=== PATIENT | female | born 1965 | race Caucasian/White ===

== ENCOUNTER 2017-01-06 14:26 | Emergency (ER) | payer SELFPAY ==
[2017-01-06 15:11] VITALS: BP 133/93
== END 2017-01-06 16:10 | disposition left against medical advice (07) ==
LOC: ED 14:26
DX: Z53.21 Procedure and treatment not carried out due to patient leaving prior to being seen by health care provider (principal)

== ENCOUNTER 2017-01-06 18:38 | Emergency (ER) | payer SELFPAY ==
[2017-01-06 19:23] LABS: Basophils % (Auto) 0.2 % (0.0-1.8); Eosinophils % (Auto) 0.3 % (0.0-4.3); Hematocrit 42.7 % (30.3-42.9); Hemoglobin 13.8 gm/dl (10.1-14.3); Mean Corpuscular HGB Conc 32 % (30-34); Mean Corpuscular Hemoglobin 26 pg (28-32); Mean Corpuscular Volume 82 fl (79-97); Platelet Count 327 K/mm3 (140-440); Red Blood Count 5.22 M/mm3 (3.65-5.03); Red Cell Distribution Width 15.6 % (13.2-15.2); White Blood Count 13.2 K/mm3 (4.5-11.0)
[2017-01-06 19:41] LABS: Anion Gap 20 mmol/L; BUN/Creatinine Ratio 13; Blood Urea Nitrogen 9 mg/dL (7-17); Calcium 8.8 mg/dL (8.4-10.2); Carbon Dioxide 24 mmol/L (22-30); Chloride 101.9 mmol/L (98-107); Glucose 133 mg/dL (65-100); Potassium 4.6 mmol/L (3.6-5.0); Sodium 141 mmol/L (137-145)
--- NOTE | 2017-01-06 21:49 | Emergency Department Report ---
HPI - General Chief Complaint: Dental/Oral Time Seen by Provider: 01/06/17 21:23 - HPI HPI: Room 1 The patient is a 51-year-old female presenting with a chief complaint of bleeding from dental extraction site. The patient saw a dentist this morning at approximately 10:30 and had a dental extraction. Family states that extraction was only partially completed and the procedure stopped secondary to bleeding. The patient went home and continue to have bleeding. The patient contacted the dentist instructed the patient to apply direct pressure. Family and decided to come to the hospital when the bleeding did not stop. Location: [place] Duration: Constant since 20:30 Quality: Bleeding Severity: Moderate Modifying factors: [see above] Context: [see above] Mode of transportation: [not driving] ED Past Medical Hx - Past Medical History Hx Headaches / Migraines: Yes - Surgical History Additional Surgical History: tooth extraction - Family History Family history: no significant - Social History Smoking Status: Never Smoker Substance Use Type: None ED Review of Systems ROS: Stated complaint: BLEEDING FROM TOOTH EXTRACTION Other details as noted in HPI Comment: All other systems reviewed and negative Constitutional: denies: chills, fever Eyes: denies: eye pain, eye discharge, vision change ENT: dental pain, other (gingival bleeding) Respiratory: denies: cough, shortness of breath, wheezing Cardiovascular: denies: chest pain, palpitations Endocrine: no symptoms reported Gastrointestinal: denies: abdominal pain, nausea, diarrhea Genitourinary: denies: urgency, dysuria, discharge Musculoskeletal: denies: back pain, joint swelling, arthralgia Skin: denies: rash, lesions Neurological: denies: headache, weakness, paresthesias Psychiatric: denies: anxiety, depression Hematological/Lymphatic: denies: easy bleeding, easy bruising Physical Exam - Physical Exam Vital Signs: Vital Signs 01/06/17 18:57 Pulse Rate 104 H Respiratory 16 Rate Blood Pressure 124/92 O2 Sat by Pulse 96 Oximetry Physical Exam: GENERAL: The patient is well-developed well-nourished []. [] HEENT: Normocephalic. Atraumatic. Oropharynx blood soaked gauze placed in region of tooth #29. When this was removed there was steady venous oozing which feels oropharynx. NECK: Supple. Trachea midline CHEST/LUNGS: There is no respiratory distress noted. HEART/CARDIOVASCULAR: There is no tachycardia. There is no gallop rub or murmur. ABDOMEN: Abdomen is soft, nontender. Patient has normal bowel sounds. There is no abdominal distention. SKIN: There is no diaphoresis. NEURO: The patient is awake and alert. The patient is cooperative. The patient has normal speech MUSCULOSKELETAL: There is no evidence of acute injury. ED Course Vital Signs 01/06/17 18:57 Pulse Rate 104 H Respiratory 16 Rate Blood Pressure 124/92 O2 Sat by Pulse 96 Oximetry - Reevaluation(s) Reevaluation #1: 01/06/17 22:19 No active bleeding seen in the oropharynx at this time with Hel[place] in place Reevaluation #2: 01/06/17 22:53 Patient remains hemostatic. No acute distress. Strong warnings given. Helistat left in place - Consultations Consultation #1: 01/06/17 22:19 Call made to patient's dentist [phone]: No answer. Voice mail left ED Medical Decision Making - Lab Data Result diagrams: 01/06/17 19:10 01/06/17 19:10 Laboratory Tests 01/06/17 01/06/17 01/06/17 19:10 19:10 19:10 WBC 13.2 H RBC 5.22 H Hgb 13.8 Hct 42.7 MCV 82 MCH 26 L MCHC 32 RDW 15.6 H Plt Count 327 Lymph % (Auto) 10.2 L [place] % (Auto) 2.5 Eos % (Auto) 0.3 Baso % (Auto) 0.2 Lymph # 1.3 [place] # 0.3 Eos # 0.0 Baso # 0.0 Seg Neutrophils % 86.8 H Seg Neutrophils # 11.5 H APTT 34.6 Sodium 141 Potassium 4.6 Chloride 101.9 Carbon Dioxide 24 Anion Gap 20 BUN 9 Creatinine 0.7 Estimated GFR > 60 BUN/Creatinine Ratio 13 Glucose 133 H Calcium 8.8 Laboratory Tests 01/06/17 01/06/17 01/06/17 19:10 19:10 19:10 WBC 13.2 H RBC 5.22 H Hgb 13.8 Hct 42.7 MCV 82 MCH 26 L MCHC 32 RDW 15.6 H Plt Count 327 Lymph % (Auto) 10.2 L [place] % (Auto) 2.5 Eos % (Auto) 0.3 Baso % (Auto) 0.2 Lymph # 1.3 [place] # 0.3 Eos # 0.0 Baso # 0.0 Seg Neutrophils % 86.8 H Seg Neutrophils # 11.5 H PT INR APTT 34.6 Sodium 141 Potassium 4.6 Chloride 101.9 Carbon Dioxide 24 Anion Gap 20 BUN 9 Creatinine 0.7 Estimated GFR > 60 BUN/Creatinine Ratio 13 Glucose 133 H Calcium 8.8 01/06/17 19:10 WBC RBC Hgb Hct MCV MCH MCHC RDW Plt Count Lymph % (Auto) [place] % (Auto) Eos % (Auto) Baso % (Auto) Lymph # [place] # Eos # Baso # Seg Neutrophils % Seg Neutrophils # PT 13.8 INR 1.01 APTT Sodium Potassium Chloride Carbon Dioxide Anion Gap BUN Creatinine Estimated GFR BUN/Creatinine Ratio Glucose Calcium - Differential Diagnosis post extraction bleeding Critical care attestation.: If time is entered above; I have spent that time in minutes in the direct care of this critically ill patient, excluding procedure time. ED Disposition Clinical Impression: [place] bleeding Disposition: DC- TO HOME OR SELFCARE Is pt being admited?: No Does the pt Need Aspirin: No Condition: Stable Instructions: Acute dental trauma (ED) Additional Instructions: Return to the emergency department immediately should you develop worsening symptoms, fever, inability to tolerate food or liquid or any other concerns. Referrals: PRIMARY CARE, [Primary Care Provider] - 3-5 Days your, dentist [Other] - 01/07/17 Time of Disposition: 22:49
[2017-01-06 22:01] LABS: INR 1.01 (0.87-1.13)
[2017-01-06 23:00] VITALS: BP 132/80
== END 2017-01-06 23:00 | disposition home or self-care (01) ==
LOC: ED 18:38
DX: K06.8 Other specified disorders of gingiva and edentulous alveolar ridge (principal); G43.909 Migraine, unspecified, not intractable, without status migrainosus
CPT/HCPCS: 36415; 80048; 85025; 85610; 85730; 99283